=== PATIENT | male | born 1965 | race African-American/Black ===

== ENCOUNTER 2017-04-24 12:52 | Emergency (ER) | payer MEDICAID ==
[~2017-04-24] VITALS: Ht 195.6 cm; Wt 101.3 kg
[~2017-04-24 12:52] MED LIST: AZIT250T89 PO; CEFD300C37 PO; CLIN150C14 PO; CYCL5TAB PO; HYDR-3240 PO; IBUP-1223 PO; IBUP200T48 PO; TRAM50TA2 PO
[2017-04-24] MEDS ORDERED: KETOROLAC 30 MG/1 ML IVPush ONE (13:30)
[2017-04-24] MEDS ORDERED: SODIUM CHLORIDE FLUSH 10ML SYR IVF ONE (13:30)
[2017-04-24] MEDS ORDERED: ONDANSETRON 2MG/ML, 2ML IVPush ONE (13:30)
[2017-04-24] MEDS ORDERED: SODIUM CHLORIDE 0.9% 1,000ML IVBOLUS ONE (13:30)
[2017-04-24 13:46] LABS: HEMATOCRIT 45.5 % (39.2-51.8); HEMOGLOBIN 15.1 g/dL (13.7-18.0); WHITE BLOOD COUNT 3.8 x10^3/uL (3.4-10)
[2017-04-24] MEDS ORDERED: KETOROLAC 30 MG/1 ML ONE (13:52)
[2017-04-24] MEDS ORDERED: ONDANSETRON 2MG/ML, 2ML ONE (13:52)
[2017-04-24 13:59] LABS: ASPARTATE AMINO TRANSFERASE 19 U/L (15-37); BLOOD UREA NITROGEN 23 mg/dL (7-18)
[2017-04-24 14:48] VITALS: BP 147/83
== END 2017-04-24 14:51 | disposition home or self-care (01) ==
LOC: ED 14:30
DX: K52.9 Noninfective gastroenteritis and colitis, unspecified (principal); J45.909 Unspecified asthma, uncomplicated; I10 Essential (primary) hypertension
CPT/HCPCS: 36415; 80053; 85025; 96361; 96374; 96375; 99284; J1885; J2405; J7030

== ENCOUNTER 2017-04-25 04:12 | Emergency (ER) | payer MEDICAID ==
[~2017-04-25] VITALS: Ht 195.6 cm; Wt 100.0 kg
[2017-04-25] MEDS ORDERED: FAMOTIDINE 20 MG/2 ML IVP ONE (05:00)
[2017-04-25] MEDS ORDERED: SODIUM CHLORIDE FLUSH 10ML SYR IVF ONE (05:00)
[2017-04-25] MEDS ORDERED: KETOROLAC 30 MG/1 ML IVPush ONE (05:00)
[2017-04-25] MEDS ORDERED: METOCLOPRAMIDE 5 MG/ML, 2ML IVPush ONE (05:00)
[2017-04-25] MEDS ORDERED: SODIUM CHLORIDE 0.9% 1,000ML IVBOLUS ONE (05:00)
[2017-04-25] MEDS ORDERED: METOCLOPRAMIDE 5 MG/ML, 2ML ONE (05:01)
[2017-04-25] MEDS ORDERED: KETOROLAC 30 MG/1 ML ONE (05:01)
[2017-04-25] MEDS ORDERED: FAMOTIDINE 20 MG/2 ML ONE (05:01)
[2017-04-25 05:55] LABS: HEMATOCRIT 49.7 % (39.2-51.8); HEMOGLOBIN 15.9 g/dL (13.7-18.0); WHITE BLOOD COUNT 8.8 x10^3/uL (3.4-10)
[2017-04-25 06:02] LABS: BLOOD UREA NITROGEN 25 mg/dL (7-18)
[2017-04-25 07:07] VITALS: BP 122/83
== END 2017-04-25 07:10 | disposition home or self-care (01) ==
LOC: ED 04:21
DX: K52.9 Noninfective gastroenteritis and colitis, unspecified (principal); F17.200 Nicotine dependence, unspecified, uncomplicated; J45.909 Unspecified asthma, uncomplicated
CPT/HCPCS: 36415; 80048; 81001; 85025; 87086; 96361; 96374; 96375; 99284; J1885; J2765; J7030; S0028

== ENCOUNTER 2017-05-26 13:21 | Emergency (ER) | payer MEDICAID ==
[~2017-05-26] VITALS: Ht 193 cm; Wt 105.0 kg
[2017-05-26 13:22] VITALS: BP 141/94
== END 2017-05-26 14:31 | disposition home or self-care (01) ==
LOC: ED 14:08
DX: L03.115 Cellulitis of right lower limb (principal); I10 Essential (primary) hypertension; J45.909 Unspecified asthma, uncomplicated; W57.XXXA Bitten or stung by nonvenomous insect and other nonvenomous arthropods, initial encounter; Y93.89 Activity, other specified; Y92.89 Other specified places as the place of occurrence of the external cause; Y99.8 Other external cause status
CPT/HCPCS: 99283

== ENCOUNTER 2017-06-04 13:03 | Inpatient (IN) | payer MEDICAID ==
[~2017-06-04] VITALS: Ht 195.6 cm; Wt 101.5 kg
[2017-06-04] MEDS ORDERED: SODIUM CHLORIDE 0.9% 1,000 ML IV ONE (13:57)
[2017-06-04] MEDS ORDERED: VANCOMYCIN PER PHARMACY MC PRN ×2 (14:00→17:00)
[2017-06-04] MEDS ORDERED: SODIUM CHLORIDE 0.9% 1,000ML IVBOLUS ONE (14:00)
[2017-06-04] MEDS ORDERED: KETOROLAC 30 MG/1 ML IVPush ONE (14:30)
[2017-06-04] MEDS ORDERED: VANCOMYCIN 2,000 MG in SODIUM CHLORIDE 0.9% 500 ML IV ONE (14:30)
[2017-06-04 14:39] LABS: HEMATOCRIT 36.1 % (39.2-51.8); HEMOGLOBIN 12.1 g/dL (13.7-18.0); WHITE BLOOD COUNT 4.4 x10^3/uL (3.4-10)
[2017-06-04 14:49] LABS: BLOOD UREA NITROGEN 23 mg/dL (7-18)
[2017-06-04] MEDS ORDERED: KETOROLAC 30 MG/1 ML ONE (15:23)
[2017-06-04 16:37] VITALS: BP 152/93
[2017-06-04] MEDS ORDERED: morphine SULFATE 10 MG/ML, 1ML IVPush PRN (17:00)
[2017-06-04] MEDS ORDERED: DOCUSATE 100 MG CAPSULE PO PRN (17:00)
[2017-06-04] MEDS ORDERED: BISACODYL 10 MG SUPP PR PRN (17:00)
[2017-06-04] MEDS ORDERED: ACETAMINOPHEN 325 MG TABLET PO PRN (17:00)
[2017-06-04] MEDS ORDERED: LORazepam 1MG TABLET PO PRN (17:00)
[2017-06-04] MEDS ORDERED: ONDANSETRON 2MG/ML, 2ML IVPush PRN (17:00)
[2017-06-04] MEDS ORDERED: ENALAPRILAT 1.25 MG/ML, 2ML IVPush PRN (17:00)
[2017-06-04] MEDS ORDERED: POLYETHYLENE GLYCOL 17 GM PACKET PO PRN (17:00)
[2017-06-04] MEDS ORDERED: LABETALOL 5MG/ML, 20ML IVPush PRN (17:00)
[2017-06-04] MEDS: ENOXAPARIN 40 MG/0.4 ML SQ SCH (17:30)
[2017-06-04] MEDS ORDERED: PHARMACOKINETIC MONITORING MC PRN (17:30)
[2017-06-04] MEDS: SODIUM CHLORIDE 0.9% 1,000 ML IV SCH (17:59)
[2017-06-04] MEDS: AMPICILLIN/SULBACTAM 3 GM in SODIUM CHLORIDE 0.9% 100 ML IV SCH (17:59)
[2017-06-04 18:59] VITALS: BP 148/90
[2017-06-04] MEDS: NICOTINE 14MG/24 HR PATCH.TD24 TD SCH (20:37)
[2017-06-05] MEDS: AMPICILLIN/SULBACTAM 3 GM in SODIUM CHLORIDE 0.9% 100 ML IV SCH ×5 (00:46→23:59)
[2017-06-05 01:18] VITALS: BP 137/68
[2017-06-05] MEDS: HYDROcodone/APAP 5/325 TABLET PO PRN ×3 (01:25→19:24)
[2017-06-05] MEDS: SODIUM CHLORIDE 0.9% 1,000 ML IV SCH (04:33)
[2017-06-05 05:36] LABS: HEMATOCRIT 37.6 % (39.2-51.8); HEMOGLOBIN 12.4 g/dL (13.7-18.0); WHITE BLOOD COUNT 5.1 x10^3/uL (3.4-10)
[2017-06-05 05:45] LABS: BLOOD UREA NITROGEN 14 mg/dL (7-18)
[2017-06-05 07:02] VITALS: BP 121/74
[2017-06-05] MEDS: VANCOMYCIN 1,400 MG in SODIUM CHLORIDE 0.9% 250 ML IV SCH ×2 (08:34→19:25)
[2017-06-05] MEDS: MUPIROCIN OINT 2%, 22GM TP SCH ×3 (12:30→20:17)
[2017-06-05 12:44] VITALS: BP 130/80
[2017-06-05] MEDS: ENOXAPARIN 40 MG/0.4 ML SQ SCH (17:30)
[2017-06-05] MEDS: NICOTINE 14MG/24 HR PATCH.TD24 TD SCH (18:21)
[2017-06-05 18:59] VITALS: BP 132/79
[2017-06-06] MEDS: HYDROcodone/APAP 5/325 TABLET PO PRN (00:47)
[2017-06-06 01:06] VITALS: BP 135/84
[2017-06-06] MEDS: AMPICILLIN/SULBACTAM 3 GM in SODIUM CHLORIDE 0.9% 100 ML IV SCH ×3 (06:02→18:34)
[2017-06-06 06:30] VITALS: BP 142/82
[2017-06-06] MEDS: MUPIROCIN OINT 2%, 22GM TP SCH ×3 (08:04→21:46)
[2017-06-06] MEDS: VANCOMYCIN 1,400 MG in SODIUM CHLORIDE 0.9% 250 ML IV SCH (08:05)
[2017-06-06 12:00] VITALS: BP 144/91
[2017-06-06] MEDS: VANCOMYCIN 1,500 MG in SODIUM CHLORIDE 0.9% 250 ML IV SCH (17:13)
[2017-06-06 18:24] VITALS: BP 141/75
[2017-06-06] MEDS: NICOTINE 14MG/24 HR PATCH.TD24 TD SCH (18:33)
[2017-06-06] MEDS: ENOXAPARIN 40 MG/0.4 ML SQ SCH (18:34)
[2017-06-07] MEDS: AMPICILLIN/SULBACTAM 3 GM in SODIUM CHLORIDE 0.9% 100 ML IV SCH ×4 (00:03→19:44)
[2017-06-07 00:57] VITALS: BP 129/71
[2017-06-07] MEDS: VANCOMYCIN 1,500 MG in SODIUM CHLORIDE 0.9% 250 ML IV SCH ×2 (04:33→16:58)
[2017-06-07] MEDS ORDERED: FLU VACC QS2017-18 (36MOS+) UP/PF 0.5 ML IM-VACC ONE (06:30)
[2017-06-07 07:18] VITALS: BP 147/90
[2017-06-07] MEDS: MUPIROCIN OINT 2%, 22GM TP SCH ×3 (09:00→19:44)
[2017-06-07 14:30] VITALS: BP 136/87
[2017-06-07] MEDS: NICOTINE 14MG/24 HR PATCH.TD24 TD SCH (16:59)
[2017-06-07] MEDS: ENOXAPARIN 40 MG/0.4 ML SQ SCH (18:05)
[2017-06-07 19:18] VITALS: BP 153/87
[2017-06-07] MEDS: HYDROcodone/APAP 5/325 TABLET PO PRN (19:44)
[2017-06-08 00:30] VITALS: BP 124/79
[2017-06-08] MEDS: AMPICILLIN/SULBACTAM 3 GM in SODIUM CHLORIDE 0.9% 100 ML IV SCH ×4 (01:55→20:37)
[2017-06-08] MEDS: VANCOMYCIN 1,500 MG in SODIUM CHLORIDE 0.9% 250 ML IV SCH ×2 (04:34→16:51)
[2017-06-08 05:42] LABS: BLOOD UREA NITROGEN 26 mg/dL (7-18)
[2017-06-08 05:46] LABS: HEMATOCRIT 39.9 % (39.2-51.8); HEMOGLOBIN 13.3 g/dL (13.7-18.0); WHITE BLOOD COUNT 6.9 x10^3/uL (3.4-10)
[2017-06-08 08:00] VITALS: BP 156/88
[2017-06-08] MEDS: MUPIROCIN OINT 2%, 22GM TP SCH ×3 (09:45→20:49)
[2017-06-08 16:00] VITALS: BP 141/86
[2017-06-08] MEDS: ENOXAPARIN 40 MG/0.4 ML SQ SCH (18:30)
[2017-06-08 18:40] VITALS: BP 143/87
[2017-06-08] MEDS: HYDROcodone/APAP 5/325 TABLET PO PRN (20:37)
[2017-06-08] MEDS: NICOTINE 14MG/24 HR PATCH.TD24 TD SCH (23:31)
[2017-06-09 00:30] VITALS: BP 122/76
[2017-06-09] MEDS: AMPICILLIN/SULBACTAM 3 GM in SODIUM CHLORIDE 0.9% 100 ML IV SCH ×2 (02:06→08:38)
[2017-06-09] MEDS: VANCOMYCIN 1,500 MG in SODIUM CHLORIDE 0.9% 250 ML IV SCH (04:05)
[2017-06-09 07:45] VITALS: BP 153/87
[2017-06-09] MEDS: MUPIROCIN OINT 2%, 22GM TP SCH (08:38)
[2017-06-09] MEDS ORDERED: CLIN300C3 PO (11:25)
== END 2017-06-09 13:56 | disposition home or self-care (01) | DRG 603 ==
LOC: ED 15:17 → EDIP 15:19 → 3NE 16:23
PROVIDERS: ADMIT Family Medicine; ATTEND Family Medicine
DX: L03.115 Cellulitis of right lower limb (principal); L97.519 Non-pressure chronic ulcer of other part of right foot with unspecified severity; F17.210 Nicotine dependence, cigarettes, uncomplicated; G89.29 Other chronic pain; I10 Essential (primary) hypertension; Z66 Do not resuscitate; M54.5 Low back pain; F15.90 Other stimulant use, unspecified, uncomplicated; Z91.19 Patient's noncompliance with other medical treatment and regimen; Z87.440 Personal history of urinary (tract) infections; Z87.01 Personal history of pneumonia (recurrent); Z23 Encounter for immunization; B95.61 Methicillin susceptible Staphylococcus aureus infection as the cause of diseases classified elsewhere
CPT/HCPCS: 36415; 80048; 80202; 82040; 85025; 87040; 87070; 87077; 87186; 87205; 90686; 96365; 96367; J0295; J1650; J3370; J7030; J7040; J7050

== ENCOUNTER 2018-02-17 20:49 | Emergency (ER) | payer MEDICAID ==
[~2018-02-17] VITALS: Ht 195.6 cm; Wt 98.9 kg
[~2018-02-17 20:49] MED LIST changes: +CLIN300C3 PO; -IBUP200T48 PO; +IBUP200T49 PO
[2018-02-17 20:51] VITALS: BP 110/76
== END 2018-02-17 21:45 | disposition home or self-care (01) ==
LOC: ED 21:20
DX: R53.1 Weakness (principal); F15.10 Other stimulant abuse, uncomplicated; I10 Essential (primary) hypertension; J45.909 Unspecified asthma, uncomplicated; F17.200 Nicotine dependence, unspecified, uncomplicated; Z72.9 Problem related to lifestyle, unspecified
CPT/HCPCS: 99281

== ENCOUNTER 2019-09-17 15:01 | Emergency (ER) | payer MEDICAID ==
[~2019-09-17] VITALS: Ht 195.6 cm; Wt 106.0 kg
[2019-09-17 15:02] VITALS: BP 127/87
--- NOTE | 2019-09-17 15:04 | NUR ---
PT WALKED TO BR BY EMS. AMBULATED TO THE BR W/ A STEADY GAIT.
--- NOTE | 2019-09-17 15:20 | NUR ---
THIS IS A 54 YO M W/ C/O N/V/D AND RT UPPR ABD PAIN SINCE THIS MORNING. DENIES BLOOD IN EMESIS OR STOOL. PT REPORTS LIQUID BROWN STOOL. REPORTS SNORTING 1 LINE OF METH LAST NIGHT, NO CHANGES IN DIET. VS STABLE. PT AMBULATED TO BR DURING PHYSICAL ASSESSEMENT. RESP EVEN AND UNLABORED. NADN. WILL COLLECT STOOL SAMPLE PER . WILL CONTINUE TO MONITOR.
--- NOTE | 2019-09-17 15:31 | NUR ---
TARYN PLACED IN ROOM. PT EDUCATED ON NEED TO STAY IN ROOM UNTIL SPEAKING W. .
--- NOTE | 2019-09-17 15:38 | NUR ---
IN ROOM FOR EVAL.
--- NOTE | 2019-09-17 15:58 | NUR ---
LAB IN ROOM.
[2019-09-17] MEDS ORDERED: LOPERAMIDE 2 MG CAPSULE PO ONE (16:00)
[2019-09-17] MEDS ORDERED: LOPERAMIDE 2 MG CAPSULE ONE (16:07)
--- NOTE | 2019-09-17 16:08 | NUR ---
STOOL SAMPLE COLLECTED AND WALKED TO LAB.
[2019-09-17 16:10] LABS: BASOPHILS # (AUTO) 0.02 x10^3/uL (0-0.1); BASOPHILS % (AUTO) 0 % (0-1); EOSINOPHILS # (AUTO) 0.23 x10^3/uL (0-0.4); EOSINOPHILS % (AUTO) 2 % (1-7); LYMPHOCYTES # (AUTO) 0.93 x10^3/uL (1-3.4); LYMPHOCYTES % (AUTO) 10 % (22-44); MD NO; MEAN CORPUSCULAR HEMOGLOBIN 27.5 pg (27.5-34.5); MEAN CORPUSCULAR HGB CONC 32.7 g/dL (33.2-36.2); MEAN CORPUSCULAR VOLUME 84.2 fL (81-97); MONOCYTES # (AUTO) 0.41 x10^3/uL (0.2-0.8); MONOCYTES % (AUTO) 4 % (2-9); NEUTROPHILS # (AUTO) 8.19 x10^3/uL (1.8-6.8); NEUTROPHILS % (AUTO) 84 % (42-75); PLATELET COUNT 306 x10^3/uL (130-400); RED CELL DISTRIBUTION WIDTH 13.6 % (9.4-14.8)
--- NOTE | 2019-09-17 16:13 | NUR ---
PT MEDICATED PER EMAR.
[2019-09-17 16:14] LABS: ALANINE AMINOTRANSFERASE 45 U/L (12-78); ALBUMIN 4.4 g/dL (3.4-5.0); ANION GAP 3 mmol/L (5-15); CALCIUM 10.1 mg/dL (8.5-10.1); CHLORIDE 106 mmol/L (98-107); CREATININE 1.17 mg/dL (0.7-1.3)
[2019-09-17 16:17] LABS: ALKALINE PHOSPHATASE 59 U/L (45-117); BILIRUBIN,TOTAL 0.5 mg/dL (0.2-1.0); TOTAL PROTEIN 8.7 g/dL (6.4-8.2)
[2019-09-17 16:42] LABS: CLOSTRIDIUM DIFFICILE ANTIGEN NEGATIVE; CLOSTRIDIUM DIFFICILE TOXIN NEGATIVE (Negative)
--- NOTE | 2019-09-17 16:44 | NUR ---
ALL TESTS RESULTED. PT IS UP FOR RECHECK AT THIS TIME.
[2019-09-17] MEDS ORDERED: DICYCLOMINE 20 MG TABLET PO ONE (17:00)
[2019-09-17] MEDS ORDERED: DICYCLOMINE 20 MG TABLET ONE (17:01)
--- NOTE | 2019-09-17 17:05 | NUR ---
PT AMBULATED TO THE BR W/ A STEADY GAIT.
--- NOTE | 2019-09-17 17:10 | NUR ---
PT MEDICATED PER EMAR.
--- NOTE | 2019-09-17 17:20 | NUR ---
Patient given discharge instructions and they have confirmed that they understand the instructions. Patient ambulatory with steady gait.
== END 2019-09-17 17:21 | disposition home or self-care (01) ==
LOC: ED 17:10
DX: R11.2 Nausea with vomiting, unspecified (principal); R19.7 Diarrhea, unspecified; R10.84 Generalized abdominal pain; I10 Essential (primary) hypertension; J45.909 Unspecified asthma, uncomplicated; F17.200 Nicotine dependence, unspecified, uncomplicated
CPT/HCPCS: 36415; 80053; 85025; 87324; 99283

== ENCOUNTER 2019-09-17 18:05 | Emergency (ER) | payer MEDICAID ==
[~2019-09-17] VITALS: Ht 195.6 cm; Wt 104.5 kg
--- NOTE | 2019-09-17 19:51 | NUR ---
Patient presents to ER c/o nausea. Patient states he was seen in the ER a couple hours ago for N/V/D. They gave him some meds to help his nausea. As soon as he was discharged, he became nauseous and vomited so he checked back in. Patient was given RX to fill upon last discharge including Zofran. Patient states he is able to get them filled. Patient is in NAD. Respirations even and unlabored.
[2019-09-17] MEDS ORDERED: PROMETHAZINE 25 MG/ML, 1ML ONE (20:15)
[2019-09-17] MEDS ORDERED: PROMETHAZINE 25 MG/ML, 1ML IM ONE (20:30)
[2019-09-17 21:15] VITALS: BP 115/83
--- NOTE | 2019-09-17 21:16 | NUR ---
Patient had one bout of diarrhea. Admin meds per sep.
[2019-09-17] MEDS ORDERED: LOPERAMIDE 2 MG CAPSULE PO ONE (21:30)
--- NOTE | 2019-09-17 22:11 | NUR ---
Patient states he is feeling better after meds. Discharge instructions given. All questions and concerns addressed. Patient ambulatory with a steady gait. Belongings with patient.
== END 2019-09-17 22:13 | disposition home or self-care (01) ==
LOC: ED 22:00
DX: R11.2 Nausea with vomiting, unspecified (principal); R19.7 Diarrhea, unspecified; I10 Essential (primary) hypertension; J45.909 Unspecified asthma, uncomplicated; F17.200 Nicotine dependence, unspecified, uncomplicated
CPT/HCPCS: 96372; 99283; J2550

== ENCOUNTER 2019-11-24 13:52 | Emergency (ER) | payer MEDICAID ==
[~2019-11-24] VITALS: Ht 195.6 cm; Wt 102.5 kg
[2019-11-24 13:55] VITALS: BP 116/64
--- NOTE | 2019-11-24 14:29 | NUR ---
Pt here for chronic right foot wound he is having a hard time geting to heal at home. Pt reports that he has been using 3xabx on it and is not working. Pt reports that he was sent home from work because he is unable to ambulate well. Pt has pedal pulse to right foot. Pt has full sensation. pt has rash and erythema in the midial aspect of the foot. Rash extends from the ankle to the plantar surface of foot. Pt resting in room awaiting further orders.
--- NOTE | 2019-11-24 15:02 | NUR ---
Patient/Caregiver given discharge instructions and they have confirmed that they understand the instructions. Patient ambulatory with steady gait.
== END 2019-11-24 15:04 | disposition home or self-care (01) ==
LOC: ED 14:57
DX: L03.115 Cellulitis of right lower limb (principal)
CPT/HCPCS: 99283

== ENCOUNTER 2020-04-11 10:50 | Emergency (ER) | payer MEDICAID ==
[~2020-04-11] VITALS: Ht 185.4 cm; Wt 103.5 kg
[2020-04-11 10:55] VITALS: BP 138/101
--- NOTE | 2020-04-11 11:45 | NUR ---
D/C INSTRUCTIONS & F/U APPT RV'WD WITH PT, HE VERBALIZES UNDERSTANDING. HOSPITAL HANDOUT ON COVID & CONTACT TRACING PROVIDED TO PT. PT AMBULATED OUT OF ED WITHOUT DIFFICULTY.
== END 2020-04-11 11:48 | disposition home or self-care (01) ==
LOC: ED 11:06
DX: B34.9 Viral infection, unspecified (principal); Z20.828 Contact with and (suspected) exposure to other viral communicable diseases; I10 Essential (primary) hypertension; J45.909 Unspecified asthma, uncomplicated; F17.210 Nicotine dependence, cigarettes, uncomplicated
CPT/HCPCS: 36415; 87635; 99283; 99406

== ENCOUNTER 2020-05-04 08:50 | Emergency (ER) | payer MEDICAID ==
[~2020-05-04] VITALS: Ht 195.6 cm; Wt 104.0 kg
[2020-05-04 08:59] VITALS: BP 147/94
--- NOTE | 2020-05-04 09:34 | NUR ---
here for covid test, swabbed by pa. as
== END 2020-05-04 10:34 | disposition home or self-care (01) ==
LOC: ED 09:42
DX: B34.9 Viral infection, unspecified (principal); Z20.828 Contact with and (suspected) exposure to other viral communicable diseases; R05 Cough; J02.9 Acute pharyngitis, unspecified; R19.7 Diarrhea, unspecified; R51.9 Headache, unspecified; I44.0 Atrioventricular block, first degree; I10 Essential (primary) hypertension; J45.909 Unspecified asthma, uncomplicated; F17.210 Nicotine dependence, cigarettes, uncomplicated
CPT/HCPCS: 36415; 87635; 93005; 99284; 99406

== ENCOUNTER 2020-07-05 03:58 | Emergency (ER) | payer MEDICAID ==
[~2020-07-05] VITALS: Ht 195.6 cm; Wt 103.0 kg
[2020-07-05 04:03] VITALS: BP 122/79
--- NOTE | 2020-07-05 04:32 | NUR ---
Patient states he is no longer having diarrhea or other symptoms.
== END 2020-07-05 05:07 | disposition home or self-care (01) ==
LOC: ED 04:00
DX: B34.9 Viral infection, unspecified (principal); Z20.828 Contact with and (suspected) exposure to other viral communicable diseases; I10 Essential (primary) hypertension
CPT/HCPCS: 87635; 99283

== ENCOUNTER 2020-10-03 10:46 | Emergency (ER) | payer MEDICAID ==
[~2020-10-03] VITALS: Ht 195.6 cm; Wt 105.0 kg
[~2020-10-03 10:46] MED LIST changes: -CLIN150C14 PO; +CLIN150C15 PO; +HYDR-1067 PO; -HYDR-3240 PO
[2020-10-03 11:04] VITALS: BP 133/84
== END 2020-10-03 11:57 | disposition home or self-care (01) ==
LOC: ED 11:51
DX: S93.601A Unspecified sprain of right foot, initial encounter (principal); S90.31XA Contusion of right foot, initial encounter; X58.XXXA Exposure to other specified factors, initial encounter; Y93.89 Activity, other specified; Y92.009 Unspecified place in unspecified non-institutional (private) residence as the place of occurrence of the external cause; Y99.8 Other external cause status
CPT/HCPCS: 99283

== ENCOUNTER 2020-11-13 04:39 | Emergency (ER) | payer MEDICAID ==
[~2020-11-13] VITALS: Ht 195.6 cm; Wt 112.0 kg
[~2020-11-13 04:39] MED LIST changes: -HYDR-1067 PO; +HYDR-2214 PO
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
[2020-11-13] MEDS ORDERED: CEPHALEXIN 500 MG CAPSULE ONE (05:28)
[2020-11-13] MEDS ORDERED: ACETAMINOPHEN 500 MG TABLET PO ONE (05:30)
[2020-11-13] MEDS ORDERED: GABAPENTIN 100 MG CAPSULE PO ONE (05:30)
[2020-11-13] MEDS ORDERED: GABAPENTIN 300 MG CAPSULE PO ONE (05:30)
[2020-11-13] MEDS ORDERED: CEPHALEXIN 500 MG CAPSULE PO SCH (05:30)
--- NOTE | 2020-11-13 05:41 | NUR ---
US AT BEDSIDE
--- NOTE | 2020-11-13 06:48 | NUR ---
BEDSIDE REPORT TO ROSE BURDEN
--- NOTE | 2020-11-13 06:59 | NUR ---
REPORT FROM [facility]. PT LAYING BACK IN BED ASLEEP. AWAKENS TO VOICE, AND QUICKLY FALLS BACK ASLEEP. NAD NOTED AT THIS TIME. VSS. PARTNER AT BEDSIDE. AWAITING US.
[2020-11-13] MEDS ORDERED: SULFAMETH./TRIMETHOPRIM DS 800MG/160MG TABLET PO ONE (07:30)
[2020-11-13] MEDS ORDERED: SULFAMETH./TRIMETHOPRIM DS 800MG/160MG TABLET ONE (07:42)
[2020-11-13 07:50] VITALS: BP 127/75
== END 2020-11-13 07:53 | disposition home or self-care (01) ==
LOC: ED 05:06
DX: T81.30XA Disruption of wound, unspecified, initial encounter (principal); I10 Essential (primary) hypertension; R60.0 Localized edema
CPT/HCPCS: 87070; 87077; 87147; 87186; 87205; 99284

== ENCOUNTER 2021-03-31 03:22 | Emergency (ER) | payer MEDICAID ==
[~2021-03-31] VITALS: Ht 195.6 cm; Wt 108.5 kg
[~2021-03-31 03:22] MED LIST changes: -CLIN150C15 PO; +CLIN150C17 PO
[2021-03-31 03:28] VITALS: BP 129/96
--- NOTE | 2021-03-31 03:35 | NUR ---
PT PRESENTS TO ER FOR AN ABCESS UNDER LEFT ARMPIT FOR 2 DAYS NOW, PT STATES HE FELT LIKE SOMETHING PINCHED AND THEN THE NEXT DAY IT TURNED INTO A PIMPLE AND THEN POPPED ON ITS OWN, PT STATES HE ONLY FEELS PAIN WHEN HE RUBS IT AND IT FEELS GOOD WHEN HE RUNS HOT WATER ON IT
[2021-03-31] MEDS ORDERED: LIDOCAINE-MPF 1%, 5ML ONE (04:01)
== END 2021-03-31 04:43 | disposition home or self-care (01) ==
LOC: ED 03:45
DX: L02.412 Cutaneous abscess of left axilla (principal); I10 Essential (primary) hypertension; J45.909 Unspecified asthma, uncomplicated; F17.210 Nicotine dependence, cigarettes, uncomplicated
CPT/HCPCS: 10060